=== PATIENT | female | born 1950 | race Hispanic/Latino ===

== ENCOUNTER 2017-04-03 10:48 | Emergency (ER) | payer MEDICARE ==
[2017-04-03 14:11] LABS: Basophils % (Auto) 0.3 % (0.0-1.8); Hematocrit 44.5 % (30.3-42.9); Hemoglobin 15.2 gm/dl (10.1-14.3); Mean Corpuscular HGB Conc 34 % (30-34); Mean Corpuscular Hemoglobin 29 pg (28-32); Mean Corpuscular Volume 86 fl (79-97); Platelet Count 327 K/mm3 (140-440); Red Blood Count 5.19 M/mm3 (3.65-5.03); Red Cell Distribution Width 13.4 % (13.2-15.2); White Blood Count 11.1 K/mm3 (4.5-11.0)
[2017-04-03 14:28] LABS: Anion Gap 18 mmol/L; BUN/Creatinine Ratio 18.33; Blood Urea Nitrogen 11 mg/dL (7-17); Calcium 9.5 mg/dL (8.4-10.2); Carbon Dioxide 26 mmol/L (22-30); Glucose 103 mg/dL (65-100); Potassium 4.3 mmol/L (3.6-5.0); Sodium 139 mmol/L (137-145)
[2017-04-03] MEDS ORDERED: NACL 0.9% 500 ML 500 ML IV ONE (15:16)
--- NOTE | 2017-04-03 15:23 | Emergency Department Report ---
HPI - General Chief Complaint: Weakness Time Seen by Provider: 04/03/17 14:10 - HPI HPI: This is a 66-year-old female presents to the emergency department from home with complaint of a few days of some generalized weakness, lightheadedness and some paresthesias since starting Viibryd for her depression 3-4 days ago. She denies any chest pain, headache, vision change, slurred speech, nausea, vomiting or shortness of breath. The patient has a history of long-standing depression and says that recently it appears to worsen that she has been rather sedentary, decreased appetite and does not seem to find much Maria Del Rosario in anything. She denies any suicidal or homicidal ideations. She is to be on citalopram for a long time but was off of her medication for a while. She tried to restart this medication twice, through her physician, but it caused her to have some palpitations. She just recently started this new medication and has taken a total of 3 days worth of dosing and thinks it may be her current symptoms are a adverse reaction to this medication. She otherwise has a history of COPD and which she takes a CPAP machine at night and uses 2 L of oxygen. She has a past medical history of arthritis, CHF, GERD, hypertension and hypothyroidism on Synthroid. No recent travel or sick contacts at home. ED Past Medical Hx - Past Medical History Hx Hypertension: Yes Hx Heart Attack/AMI: No Hx Congestive Heart Failure: Yes Hx Diabetes: No Hx Deep Vein Thrombosis: No Hx Pulmonary Embolism: No Hx GERD: Yes Hx Liver Disease: No Hx Renal Disease: No Hx Arthritis: Yes Hx Kidney Stones: No Hx Asthma: No Hx COPD: Yes Hx Tuberculosis: No Hx HIV: No Additional medical history: Sleep apnea, hypothyroidism, hernia disc neck - Surgical History Hx Coronary Stent: No Hx Open Heart Surgery: No Hx Pacemaker: No Hx Internal Defibrillator: Yes Hx Cholecystectomy: No Hx Appendectomy: No Hx Breast Surgery: No Additional Surgical History: Tonsilectomy, left ankle repair - Social History Smoking Status: Former Smoker Substance Use Type: None - Medications Home Medications: Home Medications Medication Instructions Recorded Confirmed Last Taken Type ALBUTEROL NEB's [Proventil 0.083% 2.5 mg IH TID PRN 11/11/15 11/11/15 11/11/15 History NEBS] Aspirin [Aspirin BABY CHEW TAB] 81 mg PO QDAY 11/11/15 11/11/15 11/10/15 History Fluticasone/Salmeterol [Advair 1 each IH DAILY 11/11/15 11/11/15 11/10/15 History Diskus 100-50 mcg] Furosemide [Lasix TAB] 20 mg PO QDAY 11/11/15 11/11/15 11/10/15 History Levothyroxine [Synthroid] 100 mcg PO QAM 11/11/15 11/11/15 11/10/15 History Citalopram [Celexa] 20 mg PO QDAY #30 tablet 11/15/15 Unknown Rx Dexamethasone [Decadron] 2 mg PO TID #9 tablet 11/15/15 Unknown Rx Levofloxacin [Levaquin TAB] 750 mg PO Q24HR #2 tablet 11/15/15 Unknown Rx ED Review of Systems ROS: Stated complaint: ALLERGIC REACTION TO MEDICATION Other details as noted in HPI Comment: All other systems reviewed and negative Constitutional: weakness. denies: chills, fever Eyes: denies: eye pain, eye discharge, vision change ENT: denies: ear pain, throat pain Respiratory: denies: cough, wheezing Cardiovascular: denies: chest pain, palpitations Gastrointestinal: denies: abdominal pain, nausea, diarrhea Genitourinary: denies: urgency, dysuria, discharge Musculoskeletal: denies: back pain, joint swelling, arthralgia Skin: denies: rash, lesions Neurological: paresthesias, other (lightheadedness/dizziness). denies: headache Psychiatric: depression. denies: homicidal thoughts, suicidal thoughts Physical Exam - Physical Exam Vital Signs: Vital Signs 04/03/17 04/03/17 04/03/17 11:29 14:32 14:33 Temperature 98.1 F 98.2 F Pulse Rate 80 66 Respiratory 18 18 18 Rate Blood Pressure 117/84 Blood Pressure 136/60 [Left] O2 Sat by Pulse 98 97 97 Oximetry Physical Exam: GENERAL: The patient is well-developed well-nourished. HEENT: Normocephalic. Atraumatic. Extraocular motions are intact. Patient has moist mucous membranes. Pupils equal reactive to light bilaterally. No nystagmus. NECK: Supple. Trachea is midline. CHEST/LUNGS: Clear to auscultation. There is no respiratory distress noted. HEART/CARDIOVASCULAR: Regular. There is no tachycardia. There is no gallop rub or murmur. ABDOMEN: Abdomen is soft, nontender. Patient has normal bowel sounds. There is no abdominal distention. SKIN: Skin is warm and dry. NEURO: The patient is awake, alert, and oriented. The patient is cooperative. The patient has no focal neurologic deficits. The patient has normal speech and gait. Cranial nerves II through XII grossly intact. No pronator drift. MUSCULOSKELETAL: There is no tenderness or deformity. There is no limitation range of motion. There is no evidence of acute injury. Muscle strength 5 out of 5 upper and lower extremity bilaterally. ED Course Vital Signs 04/03/17 04/03/17 04/03/17 11:29 14:32 14:33 Temperature 98.1 F 98.2 F Pulse Rate 80 66 Respiratory 18 18 18 Rate Blood Pressure 117/84 Blood Pressure 136/60 [Left] O2 Sat by Pulse 98 97 97 Oximetry ED Medical Decision Making - Lab Data Result diagrams: 04/03/17 13:33 04/03/17 13:33 - EKG Data -: EKG Interpreted by Me EKG shows normal: sinus rhythm, axis, intervals, QRS complexes (borderline Q waves to the anterior leads), ST-T waves Rate: normal - EKG Data When compared to previous EKG there are: previous EKG unavailable Interpretation: other (borderline Q waves to the anterior leads) - Radiology Data Radiology results: image reviewed interpreted by me: Chest x-ray did not show any acute process. Heart is normal shape and size. No effusions. No pneumothorax. No signs of pneumonia seen. - Medical Decision Making This is a 66-year-old female presents to the emergency department with some nonspecific complaints of generalized weakness, dizziness and lightheadedness. Chest complains of decreased appetite and living a rather sedentary lifestyle since her one hobby, sewing, ceased after the sewing machine broke. She also believes that she could have some reaction to a new SSRI that was started. Patient's labs are mostly unremarkable. There is no signs of infection, electrolyte abnormalities, renal insufficiency, glucose abnormalities. She has negative troponins 2. Her TSH level is at the low end of normal and she is on Synthroid. EKG does not show any signs of ST elevation DC or any ischemia or significant dysrhythmia. Patient was ambulatory in the emergency department and appeared stable. Despite complaining of some intermittent headaches and this kind of dizziness or lightheadedness, the patient did not want a CT of the head done at this time but also says she is not currently having a headache. The patient herself admits that there could be a mental and/or psychiatric component to this and I agree that there may be a component from depression. However it could also be related to this new medication that was started and therefore the patient will stop taking it. She is on a lowest dose of this SSRI and has only taken 3 days worth and therefore I do not believe it is necessary to wean her down. She has good follow-up with primary care and has been encouraged to see them on Wednesday without fail. She is also been encouraged to return to the emergency department with any worsening of her symptoms or any acute distress. She understands and agrees to the plan. - Differential Diagnosis depression, hypothyroidism, DC, vertigo Critical Care Time: No Critical care attestation.: If time is entered above; I have spent that time in minutes in the direct care of this critically ill patient, excluding procedure time. ED Disposition Clinical Impression: Dizziness, Lightheaded, Weakness Depression Qualifiers: Depression Type: unspecified Qualified Code(s): F32.9 - Major depressive disorder, single episode, unspecified Headache Qualifiers: Headache type: unspecified Headache chronicity pattern: episodic headache Intractability: not intractable Qualified Code(s): R51 - Headache Disposition: DC-01 TO HOME OR SELFCARE Is pt being admited?: No Condition: Stable Instructions: Depression (ED), Acute Headache (ED), Weakness (ED), Lightheadedness (ED), Dizziness (ED) Additional Instructions: Please follow-up with your primary care doctor on Wednesday. I would continue with your home medications except for the Viibryd. Return to the emergency department with any worsening of your symptoms or any acute distress. Referrals: CORRINE FABIAN [Other] - [facility] Time of Disposition: 17:23
--- NOTE | 2017-04-03 16:05 | XRay Report ---
FINAL REPORT PROCEDURE: XR CHEST 1V AP TECHNIQUE: Chest radiograph anteroposterior view. CPT 03740 HISTORY: hypertension COMPARISON: No prior studies are available for comparison. FINDINGS: Heart: Cardiac size is upper limit of normal. Mediastinum/Vessels: Normal. Lungs/Pleural space: Normal. Bony thorax: No acute osseous abnormality. Life support devices: None. IMPRESSION: No acute pulmonary process.
[2017-04-03 16:52] LABS: Bilirubin,Urine NEG (Negative); Blood,Urine SM (Negative); Ketones,Urine TR mg/dL (Negative); Leukocyte Esterase,Urine NEG (Negative); Nitrite,Urine NEG (Negative); Protein,Urine <15 mg/dL mg/dL (Negative); Urobilinogen,Urine < 2.0 mg/dL (<2.0)
[2017-04-03 18:20] VITALS: BP 127/68
== END 2017-04-03 18:23 | disposition home or self-care (01) ==
LOC: ED 10:48
DX: R42 Dizziness and giddiness (principal); R53.1 Weakness; F32.9 Major depressive disorder, single episode, unspecified; R51 Headache; I10 Essential (primary) hypertension; I50.9 Heart failure, unspecified; K21.9 Gastro-esophageal reflux disease without esophagitis; M19.90 Unspecified osteoarthritis, unspecified site; J44.9 Chronic obstructive pulmonary disease, unspecified; Z87.891 Personal history of nicotine dependence; Z79.82 Long term (current) use of aspirin
CPT/HCPCS: 36415; 71010; 80048; 81001; 83880; 84443; 84484; 85025; 93005; 93010; 96360; 99284; J7040

== ENCOUNTER 2017-04-17 03:20 | Emergency (ER) | payer MEDICARE ==
[2017-04-17 04:25] LABS: Basophils % (Auto) 0.4 % (0.0-1.8); Hematocrit 43.5 % (30.3-42.9); Hemoglobin 14.6 gm/dl (10.1-14.3); Mean Corpuscular HGB Conc 34 % (30-34); Mean Corpuscular Hemoglobin 29 pg (28-32); Mean Corpuscular Volume 86 fl (79-97); Platelet Count 288 K/mm3 (140-440); Red Blood Count 5.03 M/mm3 (3.65-5.03); Red Cell Distribution Width 13.3 % (13.2-15.2); White Blood Count 8.2 K/mm3 (4.5-11.0)
[2017-04-17 04:37] LABS: INR 0.93 (0.87-1.13); Partial Thromboplastin Time 32.9 Sec. (24.2-36.6)
--- NOTE | 2017-04-17 05:15 | Cat Scan Report ---
FINAL REPORT EXAM: CT HEAD/BRAIN W/O CON HISTORY: Neurologic deficits \T\lt; 6hrs, stroke symptoms present upon awakening. TECHNIQUE: Unenhanced axial CT images of the brain were obtained. No prior studies are available for comparison. FINDINGS: There is mild generalized volume loss, appropriate for patient's age. Mild patchy low attenuation is seen in the periventricular white matter, nonspecific but most commonly due to mild chronic small vessel ischemic disease. There is no extra-axial fluid collection, mass, mass effect, midline shift, hydrocephalus, or acute intracranial hemorrhage. There is no CT evidence of acute transcortical infarction. There is moderate soft tissue opacification of the right sphenoid sinus, with slight thickening of its mendes, indicative of an element of underlying chronic sinusitis. The soft tissue demonstrates central hyperdensity/concretions, which may be secondary to chronic sinusitis, though the possibility of fungal disease should also be considered. The remainder of the visualized paranasal sinuses are clear. The bilateral mastoid air cells are not well aerated, though appear clear. There is no skull fracture or other osseous abnormality. IMPRESSION: 1. No acute intracranial abnormality. Mild generalized volume loss and probable chronic small vessel ischemic disease. 2. Moderate right sphenoid sinus mucosal disease, with central amorphous hyperdensity/concretions, raising possibility of underlying fungal disease. Clinical correlation is recommended.
[2017-04-17 05:19] LABS: Anion Gap 20 mmol/L; Blood Urea Nitrogen 12 mg/dL (7-17); Calcium 9.4 mg/dL (8.4-10.2); Carbon Dioxide 24 mmol/L (22-30); Chloride 99.2 mmol/L (98-107); Glucose 142 mg/dL (65-100); Potassium 4.7 mmol/L (3.6-5.0); Sodium 138 mmol/L (137-145)
--- NOTE | 2017-04-17 11:22 | Emergency Department Report ---
ED Neuro Deficit HPI - General Chief Complaint: Neuro Symptoms/Deficit Stated Complaint: PAIN ALL OVER Time Seen by Provider: 04/17/17 10:55 Source: patient Mode of arrival: Wheelchair Limitations: No Limitations - History of Present Illness Initial Comments: 66-year-old female with a past medical history COPD, GERD, hypertension, sleep apnea, hypothyroidism, and herniated disc disease presents to the hospital complains of generalized numbness and tingling. Symptoms have been ongoing since starting Zoloft 100 mg on the . Patient has been switched from multiple antibiotics recently secondary to side effects of medication he had a visit here approximate 2 weeks ago for a side effect to another anti- depressive. Patient took the first doses all of evening and up in the middle night while on her CPAP machine which generalized tingling rated 10/10 in intensity. Patient expresses to her physician and she was told to take the medication in a.m. instead. Patient still having exacerbation of generalized paresthesias at night. No complaints of focal weakness. Patient has a chronic herniated disc in her cervical spine and surgery was recommended by neurosurgeon. Her preceding symptom was intermittent pain but she denies any preceding neurologic deficit. No complaints of headache or slurred speech. - Related Data Home Medications: Home Medications Medication Instructions Recorded Confirmed Last Taken ALBUTEROL NEB's [Proventil 0.083% 2.5 mg IH TID PRN 11/11/15 11/11/15 11/11/15 NEBS] Aspirin [Aspirin BABY CHEW TAB] 81 mg PO QDAY 11/11/15 11/11/15 11/10/15 Fluticasone/Salmeterol [Advair 1 each IH DAILY 11/11/15 11/11/15 11/10/15 Diskus 100-50 mcg] Furosemide [Lasix TAB] 20 mg PO QDAY 11/11/15 11/11/15 11/10/15 Levothyroxine [Synthroid] 100 mcg PO QAM 11/11/15 11/11/15 11/10/15 Previous Rx's Medication Instructions Recorded Last Taken Type Citalopram [Celexa] 20 mg PO QDAY #30 tablet 11/15/15 Unknown Rx Dexamethasone [Decadron] 2 mg PO TID #9 tablet 11/15/15 Unknown Rx Levofloxacin [Levaquin TAB] 750 mg PO Q24HR #2 tablet 11/15/15 Unknown Rx Allergies/Adverse Reactions: Allergies Allergy/AdvReac Type Severity Reaction Status Date / Time prednisone Allergy Unknown Verified 04/03/17 11:29 ED Review of Systems ROS: Stated complaint: PAIN ALL OVER Other details as noted in HPI Comment: All other systems reviewed and negative Other: Constitutional: No fevers chills Eyes: No eye pain visual changes ENT: Nasal congestion secondary to uses CPAP, on a nasal spray and it got histamine but noncompliant. Denies face or sinus pain Neck: Denies pain Respiratory: Denies cough wheezing shortness of breath Cardiovascular: Denies chest pain, palpitations, syncope GI: Denies abdominal pain, nausea, vomiting, diarrhea : Denies dysuria, urinary frequency, or urgency Musculoskeletal: Denies back pain, joint swelling Skin: Denies rash, lesions, erythema Neurologic: as per hpi Psychiatric: Denies suicidal ideation, hallucinations ED Past Medical Hx - Past Medical History Previous Medical History?: Yes Hx Hypertension: Yes Hx Heart Attack/AMI: No Hx Congestive Heart Failure: Yes Hx Diabetes: No Hx Deep Vein Thrombosis: No Hx Pulmonary Embolism: No Hx GERD: Yes Hx Liver Disease: No Hx Renal Disease: No Hx Arthritis: Yes Hx Kidney Stones: No Hx Asthma: No Hx COPD: Yes Hx Tuberculosis: No Hx HIV: No Additional medical history: Sleep apnea, hypothyroidism, hernia disc neck - Surgical History Past Surgical History?: Yes Hx Coronary Stent: No Hx Open Heart Surgery: No Hx Pacemaker: No Hx Internal Defibrillator: Yes Hx Cholecystectomy: No Hx Appendectomy: No Hx Breast Surgery: No Additional Surgical History: Tonsilectomy, left ankle repair - Social History Smoking Status: Former Smoker Substance Use Type: None - Medications Home Medications: Home Medications Medication Instructions Recorded Confirmed Last Taken Type ALBUTEROL NEB's [Proventil 0.083% 2.5 mg IH TID PRN 11/11/15 11/11/15 11/11/15 History NEBS] Aspirin [Aspirin BABY CHEW TAB] 81 mg PO QDAY 11/11/15 11/11/15 11/10/15 History Fluticasone/Salmeterol [Advair 1 each IH DAILY 11/11/15 11/11/15 11/10/15 History Diskus 100-50 mcg] Furosemide [Lasix TAB] 20 mg PO QDAY 11/11/15 11/11/1516 History Levothyroxine [Synthroid] 100 mcg PO QAM 11/11/15 11/11/15 11/10/15 History Citalopram [Celexa] 20 mg PO QDAY #30 tablet 11/15/15 Unknown Rx Dexamethasone [Decadron] 2 mg PO TID #9 tablet 11/15/15 Unknown Rx Levofloxacin [Levaquin TAB] 750 mg PO Q24HR #2 tablet 11/15/15 Unknown Rx ED Neuro Physical Exam - General Limitations: No Limitations Suspected Stroke: No - NIHSS Assessment Interval: Baseline 1a. Level of Consciousness: alert 1b. LOC Questions: answers correctly 1c. LOC Commands: performs tasks correctly 2. Best Gaze: normal 3. Visual: no visual loss 4. Facial Palsy: normal symmetrical movement 5b. Motor Arm Right: no drift 5a. Motor Arm Left: no drift 6a. Motor Leg Left: no drift 6b. Motor Leg Right: no drift 7. Limb Ataxia: absent 8. Sensory: normal 9. Best Language: no aphasia 10. Dysarthria: normal 11. Extinction/Inattention: no abnormality Total Score: 0 Stroke Severity: No Stroke Symptoms - Other Other exam information: General: No limitations, patient is alert in no acute distress Head exam: Atraumatic, normocephalic Eyes exam: Normal appearance, pupils equal reactive to light, extraocular movements intact ENT: Moist mucous membrane, normal oropharynx, no sinus tenderness Neck exam: Normal inspection, full range of motion, no meningismus nontender Respiratory exam: Clear to auscultation bilateral, no wheezes, rales, crackles Cardiovascular: Normal rate and rhythm, normal heart sounds Abdomen: Soft, nondistended, and nontender, with normal bowel sounds, no rebound, or guarding Extremity: Full range of motion normal inspection no deformity Back: Normal Inspection, full range of motion, no tenderness Neurologic: Alert, oriented x3, cranial nerves intact, no motor or sensory deficit, equal panel break bilaterally Psychiatric: normal affect, normal mood Skin: Warm, dry, intact ED Course Vital Signs 04/17/17 03:43 Temperature 97.6 F Pulse Rate 72 Respiratory 20 Rate Blood Pressure 138/87 O2 Sat by Pulse 95 Oximetry - Lab Data Result diagrams: 04/17/17 04:09 04/17/17 04:09 Lab Results 04/17/17 04/17/1717 Range/Units 04:09 04:09 04:09 WBC 8.2 (4.5-11.0) K/mm3 RBC 5.03 (3.65-5.03) M/mm3 Hgb 14.6 H (10.1-14.3) gm/dl Hct 43.5 H (30.3-42.9) % MCV 86 (79-97) fl MCH 29 (28-32) pg MCHC 34 (30-34) % RDW 13.3 (13.2-15.2) % Plt Count 288 (140-440) K/mm3 Lymph % (Auto) 33.4 (13.4-35.0) % [place] % (Auto) 4.7 (0.0-7.3) % Eos % (Auto) 1.0 (0.0-4.3) % Baso % (Auto) 0.4 (0.0-1.8) % Lymph # 2.7 (1.2-5.4) K/mm3 [place] # 0.4 (0.0-0.8) K/mm3 Eos # 0.1 (0.0-0.4) K/mm3 Baso # 0.0 (0.0-0.1) K/mm3 Seg Neutrophils % 60.5 (40.0-70.0) % Seg Neutrophils # 4.9 (1.8-7.7) K/mm3 PT 12.4 (12.2-14.9) Sec. INR 0.93 (0.87-1.13) APTT 32.9 (24.2-36.6) Sec. Thrombin Time (15.1-19.6) Sec. Sodium 138 (137-145) mmol/L Potassium 4.7 (3.6-5.0) mmol/L Chloride 99.2 (98-107) mmol/L Carbon Dioxide 24 (22-30) mmol/L Anion Gap 20 mmol/L BUN 12 (7-17) mg/dL Creatinine 0.6 L (0.7-1.2) mg/dL Estimated GFR > 60 ml/min BUN/Creatinine Ratio 20.00 % Glucose 142 H (65-100) mg/dL Calcium 9.4 (8.4-10.2) mg/dL Troponin T < 0.010 (0.00-0.029) ng/mL 04/17/17 Range/Units 04:09 WBC (4.5-11.0) K/mm3 RBC (3.65-5.03) M/mm3 Hgb (10.1-14.3) gm/dl Hct (30.3-42.9) % MCV (79-97) fl MCH (28-32) pg MCHC (30-34) % RDW (13.2-15.2) % Plt Count (140-440) K/mm3 Lymph % (Auto) (13.4-35.0) % [place] % (Auto) (0.0-7.3) % Eos % (Auto) (0.0-4.3) % Baso % (Auto) (0.0-1.8) % Lymph # (1.2-5.4) K/mm3 [place] # (0.0-0.8) K/mm3 Eos # (0.0-0.4) K/mm3 Baso # (0.0-0.1) K/mm3 Seg Neutrophils % (40.0-70.0) % Seg Neutrophils # (1.8-7.7) K/mm3 PT (12.2-14.9) Sec. INR (0.87-1.13) APTT (24.2-36.6) Sec. Thrombin Time 16.3 (15.1-19.6) Sec. Sodium (137-145) mmol/L Potassium (3.6-5.0) mmol/L Chloride (98-107) mmol/L Carbon Dioxide (22-30) mmol/L Anion Gap mmol/L BUN (7-17) mg/dL Creatinine (0.7-1.2) mg/dL Estimated GFR ml/min BUN/Creatinine Ratio % Glucose (65-100) mg/dL Calcium (8.4-10.2) mg/dL Troponin T (0.00-0.029) ng/mL - EKG Data -: EKG Interpreted by Me (nsr rate 67, low voltage) When compared to previous EKG there are: no significant change (compare to ) - Radiology Data Radiology results: report reviewed CT head: No acute abnormality. Chronic small vessel ischemic disease. Mild generalized volume loss. Moderate right sphenoid sinus mucosal disease, with central M Ricketts for his hyperdensity/concretions, raising possibility of underlying fungal disease, clinical correlation is recommended - Medical Decision Making She complains of generalized paresthesias but clinically sensation and strength are equal bilateral without neurologic deficits. Patient informed of her CT results and need for follow-up for ENT. Given the lack of sinus pain, fever, or facial pressure antibiotics have not been prescribed instead ENT referral has been provided given CT reading a possible fungal infection. Patient has a neurosurgeon who has recommended that she have neck surgery. Patient offered a CT scan of her neck however, she states that she will follow-up with her doctors to determine if further neck injury imaging is necessary. Patient also informed that this could be a side effect of Zoloft since symptoms started after taking the medication. Patient was told to discuss her medication dosing with her prescribing doctor. - Differential Diagnosis anxiety, paresthesia, stroke, herniated ED, medication reaction Critical Care Time: No Critical care attestation.: If time is entered above; I have spent that time in minutes in the direct care of this critically ill patient, excluding procedure time. ED Disposition Clinical Impression: Paresthesia, Medication reaction, History of herniated intervertebral disc Disposition: DC-01 TO HOME OR SELFCARE Is pt being admited?: No Does the pt Need Aspirin: No Condition: Stable Instructions: Paresthesia (ED) Additional Instructions: The cause of your generalized paresthesias/numbness is unknown at this time. This occurred after starting your antidepressives therefore may be a side effect of your medication. You also have a history of significant cervical disc disease. No clinical weakness or numbness on your exam today. It is very important that you follow-up with the neurologist for your neurosurgeon to determine if further workup of the cervical spine is necessary. The CAT scan of her head identified right external sinus disease and cannot rule out the possibility of underlying fungal infection. It is important that you follow-up with the ear nose throat doctor for further investigation of this CT finding. Referrals: PRIMARY CARE, [Primary Care Provider] - 3-5 Days WARD MARCUM MD [Staff Physician] - 2-3 Days (neurologist) your, neurosurgeon [Other] - 2-3 Days HERO LOPEZ MD [Staff Physician] - 3-5 Days (Ear nose Throat doctor ) Time of Disposition: 11:28
[2017-04-17 12:33] VITALS: BP 131/69
== END 2017-04-17 11:54 | disposition home or self-care (01) ==
LOC: ED 03:20
DX: R20.8 Other disturbances of skin sensation (principal); I10 Essential (primary) hypertension; K21.9 Gastro-esophageal reflux disease without esophagitis; M19.90 Unspecified osteoarthritis, unspecified site; J44.9 Chronic obstructive pulmonary disease, unspecified; E03.9 Hypothyroidism, unspecified; Z87.891 Personal history of nicotine dependence; Z79.82 Long term (current) use of aspirin; Z88.8 Allergy status to other drugs, medicaments and biological substances
CPT/HCPCS: 36415; 70450; 80048; 82962; 84484; 85025; 85610; 85670; 85730; 93005; 93010